=== PATIENT | female | born 1990 | race Caucasian/White ===

== ENCOUNTER 2023-12-16 07:23 | Inpatient (IN) | payer OTHER ==
[2023-12-16] VITALS (20 sets, daily range): BP systolic 99–137; BP diastolic 55–611; PULSE 75–122; TEMP 98.1–98.4
[~2023-12-16] VITALS: Ht 165.1 cm; Wt 84.1 kg
--- NOTE | 2023-12-16 07:25 | NUR ---
PT ARRIVES VIA WHEELCHAIR TO UNIT, C/O INTENSE CONTRACTIONS "SUKHDEV HAD 3 ALREADY JUST SINCE GETTING TO THE HOSPITAL". UNABLE TO BREATHE THROUGH CONTRACTIONS OR TALK. INTERMITTENTLY BEARING DOWN AND STATES SHE HAS "A LOT OF VERY LOW PAIN". SVE UPON ARRIVAL /-2. INTACT. CATEGORY 1 EFM TRACING. NOTIFIED. PT REPORTS TRAUMATIC HISTORY INCLUDING A HEMORRHAGE, PLACENTA ACCRETA, RETAINED PLACENTA, D&C, AND BLOOD TRANSFUSION WITH LAST IN [facility]. APPEARS VERY ANXIOUS. THIS NURSE EDUCATES HER ON POC AND COACHES HER THROUGH BREATHING EXERCISES WHILE OFFERING REASSURANCE. PT REQUESTING EPIDURAL SOON POSSIBLE. WILL NOTIFY GRGEOR MARQUEZ CRNA SHORTLY.
[2023-12-16] MEDS ORDERED: LR 1,000 ML IV SCH (07:45)
[2023-12-16] MEDS ORDERED: LR & Oxytocin 500 ML IV SCH (07:45)
[2023-12-16] MEDS ORDERED: ROPivacaine PF 0.2% 200 ML IV ONE (07:54)
[2023-12-16 07:58] LABS: BASO % 0.2 % (0.0-2.0); EOS % 0.2 % (0.0-4.0); GRAN # 8.4 K/mm3 (1.4-6.5); GRAN % 67.4 % (42.2-75.2); HEMATOCRIT 44.8 % (37.0-47.0); HEMOGLOBIN 14.9 g/dl (12.5-16.0); LYMPH # 2.9 K/mm3 (1.2-3.4); LYMPH % 23.4 % (20.0-51.0); MEAN CELL VOLUME 92 fl (80.0-100.0); MEAN CORPUSCULAR HEMOGLOBIN 31 pg (27-31); MEAN CORPUSCULAR HGB CONC 33 g/dl (33.0-37.0); MEAN PLATELET VOLUME 10.5 fl (7.4-10.4); MONO # 1.1 K/mm3 (0.1-0.6); MONO % 8.4 % (1.7-9.3); PLATELET COUNT 345 K/mm3 (130-400); RED BLOOD COUNT 4.89 M/mm3 (4.10-5.30); REDCELL DISTRIBUTION WIDTH-CV 12.8 % (11.5-14.5)
--- NOTE | 2023-12-16 08:02 | NUR ---
PER DR LEE, ORDER 2U PRBC TO HAVE PREPARED AND AVAILABLE DUE TO PT HX
--- NOTE | 2023-12-16 08:03 | NUR ---
PT TO SITTING POSITION ON EDGE OF BED FOR EPIDURAL PLACEMENT. LR BOLUS INFUSING. DIFFICULTY TRACING EFM DUE TO MATERNAL POSITIONING. MATERNAL VITAL SIGNS STABLE. GREGOR MARQUEZ CRNA AT BEDSIDE DISCUSSING PROCEDURE. PT AGREEABLE TO CONTINUE. 0808: TEST DOES PER NOLVIA BUNDY. PT TOLERATED PROCEDURE WELL
[2023-12-16] MEDS ORDERED: Tranexamic Acid 1,000 MG in NS 100 ML IV ONE (08:30)
--- NOTE | 2023-12-16 08:30 | NUR ---
IV TXA 1000MG PUSHED OVER 10 MINUTES IVP PER VORB /GREGOR MARQUEZ TANNING WHEEL FILLER FOR PREVENTATIVE MEASURE DUE TO PPH HX. METHERGINE AT BEDSIDE PENDING DELIVERY.
[2023-12-16] MEDS ORDERED: Lidocaine PF 2% (20 MG/ML) 5 ML VIAL ONE (08:34)
[2023-12-16] MEDS ORDERED: NS 10 ML IV ONE (08:34)
--- NOTE | 2023-12-16 08:42 | NUR ---
DR LEE AT BEDSIDE, SVE /0. AROM WITH CLEAR FLUID AT 0842 PER . PT TOLERATED EXAM WELL. CATEGORY 1 EFM TRACING.
[2023-12-16] MEDS ORDERED: ePHEDrine 50 MG/10 ML VIAL IV PRN (08:45)
[2023-12-16] MEDS ORDERED: Ondansetron 4 MG/2 ML VIAL IV PRN (08:45)
[2023-12-16] MEDS ORDERED: Naloxone 0.4 MG/ML VIAL IV PRN ×2 (08:45→09:45)
[2023-12-16] MEDS ORDERED: diphenhydrAMINE 50 MG/ML 1 ML VIAL IV PRN (08:45)
[2023-12-16] MEDS ORDERED: diphenhydrAMINE 25 MG CAP PO PRN (08:45)
[2023-12-16] MEDS ORDERED: Ibuprofen 800 MG TAB PO SCH (09:45)
[2023-12-16] MEDS ORDERED: Loratadine 10 MG TAB PO PRN (09:45)
[2023-12-16] MEDS ORDERED: Magnes Hydrox (MOM) 80 MG/ML 30 ML CUP PO PRN (09:45)
[2023-12-16] MEDS ORDERED: oxyCODONE 5 MG TAB PO PRN (09:45)
[2023-12-16] MEDS ORDERED: Witch Hazel 50% Pads Bulk TUB TP PRN (09:45)
[2023-12-16] MEDS ORDERED: Phenylephrine/Mineral Oil/Petrolatum 57 GM TUBE RC PRN (09:45)
[2023-12-16] MEDS ORDERED: Measles/Mumps/Rubella Virus Vaccine Live w Diluent 0.5 ML VIAL SQ SCH (09:45)
[2023-12-16] MEDS ORDERED: Mag/Al Hydrox/Simeth Susp 30 ML CUP PO PRN (09:45)
[2023-12-16] MEDS ORDERED: Acetaminophen 500 MG TAB PO PRN (09:45)
--- NOTE | 2023-12-16 10:20 | NUR ---
0915: DR LEE AT BEDSIDE, SVE COMPLETE/0 STATION. COACHES PT TO BEGIN PUSHING EFFORTS. PT REPORTS EXTREME NUMBNESS TO BILATERAL LOWER EXTREMITIES AND ABDOMEN, STRONG MATERNAL EFFORT. BEGINS TO MOVE HEAD. 1020: OF VIABLE FEMALE INFANT AT THIS TIME PER . INFANT TO MATERNAL ABDOMEN, STRONG CRY NOTED. CARE OF ASSUMED BY RIMA ANDERSON. CORD CLAMPED X2 AND CUT BY FOB. INFANT SKIN TO SKIN WITH MOTHER UPON CUTTING CORD. MATERNAL LOCHIA SCANT. MATERNAL VITAL SIGNS STABLE. 1024: OF PLACENTA AT THIS TIME. PITOCIN BOLUS INFUSING PER PROTOCOL. LOCHIA SCANT, FUNDUS FIRM AT UMBILICUS. NO CONCERNS WITH BLEEDING AT THIS TIME. PERINEUM REMAINS INTACT. WILL CONTINUE WITH RECOVERY.
[2023-12-16] MEDS ORDERED: Sennosides/Docusate 8.6-50 MG TAB PO SCH (17:00)
[2023-12-16] MEDS ORDERED: traZODone 50 MG TAB PO PRN (21:00)
[2023-12-17 08:00] VITALS: BP 110/70; PULSE 73; TEMP 98
[2023-12-17] MEDS ORDERED: IBU800 M1 PO (08:58)
[2023-12-17] MEDS ORDERED: TYLENOL 500MG500 MG PO (08:58)
--- NOTE | 2023-12-17 12:38 | NUR ---
DISCHARGE EDUCATION COMPLETED, HEALTH HISTORY GIVEN, DISCUSSED FOLLOW UP APPOINTMENTS.
[2023-12-17] MEDS ORDERED: Rho(D) Imm Globulin 1,500 UNITS (300 MCG)/2 ML SYRINGE IV\\IM SCH (17:00)
== END 2023-12-17 13:00 | disposition home or self-care (01) | DRG 807 ==
LOC: LDRO 07:23 → LDR 07:38 → OB 12:56
PROVIDERS: Obstetrics & Gynecology; ADMIT Obstetrics & Gynecology
PROC: 10E0XZZ Delivery of Products of Conception, External Approach (ICD-10-PCS; principal; 2023-12-16)
DX: O48.0 Post-term pregnancy (principal); Z37.0 Single live birth; Z3A.40 40 weeks gestation of pregnancy; O26.893 Other specified pregnancy related conditions, third trimester; Z67.41 Type O blood, Rh negative
CPT/HCPCS: J2590; J2791; J2795; J7120